=== PATIENT | female | born 1980 | race Caucasian/White ===

== ENCOUNTER 2017-12-23 17:19 | Emergency (ER) | payer OTHER ==
[~2017-12-23] VITALS: Ht 154.9 cm; Wt 52.6 kg
[2017-12-23 17:21] VITALS: BP 133/90
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
--- NOTE | 2017-12-23 18:25 | NUR ---
PT TAKEN TO ULTRA SOUND
[2017-12-23 18:35] LABS: HEMATOCRIT 36.4 % (36-48); HEMOGLOBIN 11.5 g/dL (12.0-16.0); MEAN CORPUSCULAR HEMOGLOBIN 23 pg (27-31); MEAN CORPUSCULAR HGB CONC 32 g/dL (33-37); MEAN CORPUSCULAR VOLUME 73.2 fL (80-94); PLATELET COUNT (AUTO) 128 K/uL (140-450); RED BLOOD CELL COUNT(AUTO) 4.96 MIL/uL (4.20-5.40); RED CELL DISTRIBUTION WIDTH 14.5 % (11.6-13.7); WHITE BLOOD COUNT (AUTO) 16.6 K/uL (4.8-10.8)
--- NOTE | 2017-12-23 18:45 | NUR ---
PT BACK FROM [facility]
[2017-12-23] MEDS: ONDANSETRON 4 MG ODT PO ONE (18:54)
[2017-12-23 18:57] LABS: LYMPHOCYTES % (MANUAL) 7 % (20-46)
--- NOTE | 2017-12-23 19:19 | NUR ---
RECEIVED REPORT FROM AM NURSE. PT RESTING IN BED, DENIES ANY PAIN AT THIS TIME, ALL NEEDS MET AT THIS TIME.
[2017-12-23 19:40] VITALS: BP 124/74
== END 2017-12-23 19:40 | disposition home or self-care (01) ==
LOC: MED 17:19
DX: O03.9 Complete or unspecified spontaneous abortion without complication (principal)
CPT/HCPCS: 36415; 76817; 84702; 85025; 99285; Q0092; S0119

== ENCOUNTER 2022-01-03 11:25 | Emergency (ER) | payer BC, OTHER ==
[~2022-01-03] VITALS: Ht 154.9 cm; Wt 56.2 kg
[2022-01-03 11:34] VITALS: BP 159/92
--- NOTE | 2022-01-03 11:39 | NUR ---
AMBULATED TO BED 3
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
[2022-01-03] MEDS ORDERED: ACETAMINOPHEN EXTRA STRENGTH 500 MG TAB PO ONE (12:10)
[2022-01-03 12:48] LABS: PROTHROMBIN TIME 9.9 secs (10.8-13.4)
[2022-01-03 12:49] LABS: ANION GAP 13.9 (8-16); CREATININE 0.6 mg/dL (0.6-1.3); POTASSIUM 3.9 mmol/L (3.5-5.1); TOTAL BILIRUBIN 0.4 mg/dL (0.0-1.0)
[2022-01-03 12:50] LABS: BASOPHILS # (AUTO) 0.1 K/uL (0.00-0.22); EOSINOPHILS # (AUTO) 0.1 K/uL (0-0.4); EOSINOPHILS % (AUTO) 2.1 % (0.0-4.0); HEMATOCRIT 38.2 % (36-48); HEMOGLOBIN 12.3 g/dL (12.0-16.0); LYMPHOCYTES # (AUTO) 1.8 K/uL (2.5-16.5); LYMPHOCYTES % (AUTO) 28.4 % (20.5-51.1); MEAN CORPUSCULAR HEMOGLOBIN 24 pg (27-31); MEAN CORPUSCULAR HGB CONC 32 g/dL (33-37); MEAN CORPUSCULAR VOLUME 73.8 fL (80-94); MONOCYTES # (AUTO) 0.3 K/uL (0.8-1.0); MONOCYTES % (AUTO) 4.9 % (1.7-9.3); NEUTROPHILS # (AUTO) 4.1 K/uL (1.8-7.7); NEUTROPHILS % (AUTO) 63.6 % (42.2-75.2); PLATELET COUNT (AUTO) 134 K/uL (140-450); RED BLOOD CELL COUNT(AUTO) 5.18 MIL/uL (4.20-5.40); RED CELL DISTRIBUTION WIDTH 14.2 % (11.6-13.7); WHITE BLOOD COUNT (AUTO) 6.4 K/uL (4.8-10.8)
[2022-01-03 13:46] VITALS: BP 115/70
--- NOTE | 2022-01-03 13:46 | NUR ---
Patient discharged with v/s stable. Written and verbal after care instructions given and explained. Patient verbalized understanding. Ambulatory with steady gait. All questions addressed prior to discharge. Advised to follow up with PMD.
[2022-01-03 13:54] LABS: APPEARANCE,URINE CLEAR (CLEAR); BILIRUBIN,URINE NEGATIVE (NEGATIVE); BLOOD, URINE 3+ (NEGATIVE); COLOR,URINE YELLOW (YELLOW); LEUKOCYTE ESTERASE ,URINE NEGATIVE (NEGATIVE); NITRITE, URINE NEGATIVE (NEGATIVE); UGLUCOSE NEGATIVE (NEGATIVE)
[2022-01-03 14:20] LABS: RBC,URINE 11-20 (MOD) /HPF (0-5)
[2022-01-03 14:21] LABS: OTHER CASTS, URINE None Seen /LPF (None Seen); WBC,URINE 0-5 /HPF (0-5)
== END 2022-01-03 13:46 | disposition home or self-care (01) ==
LOC: MED 11:25
DX: N83.201 Unspecified ovarian cyst, right side (principal); Z98.890 Other specified postprocedural states
CPT/HCPCS: 36415; 76856; 80053; 81001; 81025; 84702; 85025; 85610; 85730; 86886; 86900; 86901; 93976; 99284; Q0092